=== PATIENT | female | born 1950 | race Caucasian/White ===

== ENCOUNTER 2025-08-07 08:46 | Outpatient (AMB) | payer OTHER, SELFPAY ==
--- NOTE | 2025-08-07 09:06 | A.OFFVIS_ITS ---
Vital Signs 08/07/25 09:08 Height 5 ft 8 in Weight 171 lb BMI 26.0 BP 153/68 H Position Sitting Pulse 104 H Intake Visit Reasons: colo screen Intake Note: Patient new consult for 5th Colonoscopy screening. Patient cc: fatigue on and off more in the afternoon. Hx of Colon polyps, she have 4 more Colonoscopy Cadd Drafter Required: No Accompanied by: Self / Same As Patient Allergies gabapentin Allergy (Intermediate, Verified 08/07/25 09:25) Dizziness codiene Allergy (Intermediate, Uncoded 08/07/25 09:21) Nausea and Vomiting HPI HPI colo screen: Details: Patient is a 74-year-old female with PMH of hypertension, hyperlipidemia, diabetes, CKDIIIb, GRANT. Referred by PCP for pre colonoscopy screening This will be her fourth colonoscopy, with the most recent procedure performed in [place] in 2019, which included a polypectomy and a recommendation for a repeat examination in five years. She reports regular bowel movements accompanied by periods of constipation that resolve spontaneously. She denies any blood in the stool, abdominal pain, nausea, vomiting, or changes in appetite. She experiences rare heartburn with regurgitation approximately once a month, which she attributes to trigger fluids and resolves spontaneously. Her medical history is significant for sleep apnea, for which she uses an oral device instead of a CPAP, citing an unpleasant experience with sleep medicine. The patient also reports fatigue and a gradual weight gain over the last three months. Patient denies: fever/chills, n/v, appetite changes, dysphasia, unintentional wt loss, ab pain or melena/hematochezia. Social hx: -ETOH use one glass of wine approx 1x/month -denies recreational drug use -former smoker, cessation 1979 - family hx as below -denies personal hx of CA -denies significant cardiopulmonary history -She has a history of prolonged recovery time from sedation, otherwise tolerated anesthesia in the past without difficulty. PFSH Medical History (Updated 08/07/25 @ 09:08 by Alma Huynh CNP) Colon cancer screening Surgical History (Updated 08/07/25 @ 09:21 by Temitope Jaime) Hx of varicose veins History of throat surgery Hx of left breast biopsy Hx of section History of esophagogastroduodenoscopy (EGD) Hx of colonoscopy Social History Household Members: Family Alcohol intake: current Alcohol intake frequency: holidays/special occasions only Patient Tobacco Use Status: Former Tobacco user Review of Systems Const Reports as per [facility] ENT Reports as per HPI Card Reports as per HPI Resp Reports as per HPI GI Reports as per HPI Reports as per HPI Physical Exam Vital Signs: Last Vital Signs Pulse 104 H 08/07/25 09:08 BP 153/68 H 08/07/25 09:08 BMI result Body Mass Index 26.0 Const General: healthy appearing, no acute distress and well developed Nutritional Appearance: average body habitus Orientation/consciousness: patient oriented x3 HEENT Head: Yes normal to inspection, Yes normocephalic and Yes atraumatic Face and sinus: Yes normal facial exam Eyes General: appearance normal, both eyes and all related structures Neck Neck: Yes normal visual inspection Resp Effort & Inspection: normal respiratory effort, able to speak in complete sentences, no tracheal deviation and symmetric chest movement Cardio Jugular venous distension: no JVD Neuro General: patient oriented x3 Gait exam (Neuro): Normal gait present Psych Appearance: grossly normal Mental Status: mental status grossly normal Speech and movement: Normal speech and movement present Affect: normal affect Attitude: cooperative Thought process: Normal thought process present Thought content: Normal thought content present Insight: Good insight present (Psych) Judgement: Good judgement present (Psych) Assessment & Plan Assessment & Plan (1) Colon cancer screening: Code(s): Z12.11 - Encounter for screening for malignant neoplasm of colon Category: Medical Plan: Due for polyp surveillance colonoscopy. No alarm features. The patient was counseled that screening after age 75 is an individualized decision. Medications: -prescriptions for laxative tablets and MiraLax sent to pharmacy; instructions for Gatorade purchase and clear liquid diet given. - understands to hold aspirin 7 days prior to procedure. Patient educated on scheduling process, procedure preparation, including avoiding certain foods and ensuring clear liquid intake Advised on necessity for ride post-procedure due to sedation. (2) Fatigue: Code(s): R53.83 - Other fatigue Qualifiers: Fatigue type: unspecified Qualified Code(s): R53.83 - Other fatigue Plan: The patient's fatigue is considered potentially multifactorial, possibly related to her sleep apnea. - Recommended that she follow up with her primary care provider to investigate for vitamin deficiencies and to have her thyroid levels checked. - Will attempt to obtain recent lab results from July to check for anemia.. Plan Follow-up after colonscopy or sooner as needed Time: I spent a total of 32 minutes on the date of encounter which includes: Preparing to see the patient (reviewed previous documentation, test results and medical history) Performing a medically appropriate exam and/or evaluation Ordering medications, tests, and procedures Documenting clinical information in the health record Orders: Referrals GI Procedure Notification Z12.11 - Encounter for screening for malignant neoplasm of colon, Z86.0100 - Personal history of colon polyps, unspecified Medications: New bisacodyl take four tablets once day of colonoscopy prep 20 mg (4 x 5 mg) PO ONCE 4 tabs 0RF polyethylene glycol 3350 (Miralax) per colonoscopy prep instructions 238 grams PO ONCE 238 grams 0RF Coding Level of Care Code New Pt New Pt Level 3 (13472) Patient Type New Diagnoses Colon cancer screening Z12.11 Fatigue, unspecified type R53.83 Fatigue type: unspecified
[2025-08-07 09:08] VITALS: BP 153/68; PULSE 104; BMI 26.0
--- OUTSIDE RECORDS SUMMARY | 2025-08-07 09:29 | XMS_ITS | Patient Health Record ---
Author Organization [facility] Address [address] [place] [place] [address] [address] [place], [place] [id number] Care Team Providers Care Assembler [facility] Name Role Phone Yeni Smiley Primary Care Provider Unavailabl e Allergies Allergen (clinical drug ingredient) Drug/Non Drug Allergy documented on EMR Reaction Allergy Type Onset Date Status sulfamethoxazole / trimethoprim bactrim (uncoded) Unknown Allergy Active codeine codeine (uncoded) Unknown Allergy Ac tive Reason For Referral No Information Medications Medication SIG (Take, Route, Frequency, Duration) Notes Start Date End Date Status Aspirin 75 MG 1 tablet Orally Once a day Active metFORMIN HCl 500 MG 1 tablet with meals Orally Twice a day Active Vitamin Daily Active Red [place] Extract 500 MG Orally Active EstroNatural Extra Strength Orally Active Black Cohosh 40 MG Orally A ctive Losartan Potassium 50 MG 1 tablet Orally Once a day Active Crestor 40 MG 1 tablet Orally Once a day Active Plan Of Treatment No Information Insurance Providers Payer Name Payer Address Payer Phone Subscriber Number Group Number Insured Name Patient Relationship to Insured Coverage Start Date Coverage End Date [facility] [facility] [place] [address] [place] [address] [id number] AC Litzy Patino Self - patient is the insured Medical (General) History Medical History History ICD Code Diabetes high blood pressure High cholesterol Surgical History Surgery Date(Month/Year) 1979 lumpectomy 1989 tubes tied 1983 cyst throat 2006
--- OUTSIDE RECORDS SUMMARY | 2025-08-07 09:29 | XMS_ITS | Patient Health Record ---
Author Organization [facility] Address [address] [facility] [address] [place] [address] Care Team Providers Care Systems Qa Analyst Name Role Phone Alistair Palmer Unavailable [phone] Allergies Allergen (clinical drug ingredient) Drug/Non Drug Allergy documented on EMR Reaction Allergy Type Onset Date Status Codeine Phosphate Unknown Drug Allergy Active Reason For Referral No Information Medications Medication SIG (Take, Route, Fr equency, Duration) Notes Start Date End Date Status Losartan Potassium A ctive Crestor Active metFORMIN HCl Active Problems Problem Type SNOMED Code ICD Code Onset Dates Problem Status W/U Status Risk Notes Problem Venous varices (832376712) Symptomatic Varicose Veins (454.8) Active confirmed Plan Of Treatment Pending Test Test Name Order Date Ultrasound : Doppler : Veins Leg Viral. Medical (General) History Medical History History ICD Code Hypertension High Cholesterol Diabetes Surgical History Surgery Date(Month/Year) Excision of thyroglossal cyst
== END 2025-08-07 10:16 | disposition home or self-care (01) ==
LOC: HO.HGI 08:47
PROVIDERS: PCP Internal Medicine; Visit Provider Nurse Practitioner Family
DX: Z01.818 Encounter for other preprocedural examination (principal); Z12.11 Encounter for screening for malignant neoplasm of colon; Z86.0100 Personal history of colon polyps, unspecified; R53.83 Other fatigue
CPT/HCPCS: 99203